=== PATIENT | female | born 1980 | race Caucasian/White ===

== ENCOUNTER 2023-08-19 20:10 | Emergency (ER) | payer OTHER, SELFPAY ==
[2023-08-19 21:41] VITALS: BMI 28.7
--- NOTE | 2023-08-19 21:45 | ED.GENMED ---
History of Present Illness
General
Chief Complaint: Skin Problem
Source: patient
Time Seen by Provider: 08/19/23 21:16
Travel History
Have you had any contact with someone who has COVID-19?: No
Do you have any symptoms of coronavirus? Fever > 100 degrees, chills, cough, shortness of breath, sore throat, loss of taste or smell, muscle aches, or headache?: No
History of Present Illness
History of Present Illness:
This patient is a 42-year-old female with a longstanding history of substance use disorder. She admits to using heroin/fentanyl via IV, cocaine, and abusing the Xanax that she is prescribed. She presents today because she states that she wants to
get help. However, she also expresses concerns about multiple chronic skin findings at her extremities, neck, and hands. She last used about 12 hours ago, is starting to feel unwell like early withdrawal, predict she will be vomiting in the next
few hours. Despite triage note patient denies abdominal pain. She denies fever, chills, dizziness, chest pain, shortness of breath, cough, vomiting, bleeding, urinary symptoms. She does note that after 2-year period, she got her period for the
first time a few days ago.
Past History
Past History
ED Past Medical History: Psychiatric, Other (Polysubstance drug abuse) and Other (Narcotics addiction, seizures, some psychiatric problems and she is on Haldol and Cogentin)
ED Past Surgical History: Other (Skin graft left lower extremity)
Social History
Tobacco: Smoker
Alcohol: None
Drug: Marijuana, Cocaine, Narcotics and IVDA
Personal: Single
Living: with family
Employment: Not employed
Family History
Family History: Unable to obtain
Phy Exam
Physical Exam
Physical Exam:
GENERAL: Alert , in no apparent distress, sl unkempt but interactive and pleasant
EYE: pupils equal and reactive, no photophobia
NECK: Supple, no significant adenopathy.
ENT: o/p clr, mm slightly dry.
CARDIAC: Regular rate and rhythm, no murmur noted.
LUNGS: Clear breath sounds bilaterally, no acute respiratory distress, no wheezes/rales/rhonchi
ABDOMEN: Soft, without focal tenderness, no r/g, no cvat
NEUROLOGICAL: Alert and oriented, no focal neuro deficits
SKIN: Warm and dry, skin intact. No actively draining or open wounds. Multiples areas of scarring/scabs (ex R neck, ex. arms, etc) without evidence of secondary infx noted. No fluctuance/crepitus/streaking, etc. There is a small 3 cm approx
area inner aspect R upper arm with mild ttp and redness/warmth.
MUSCULOSKELETAL: No edema, well perfused.
PSYCH: Normal and appropriate interaction.
Course
Orders/Labs/Results
Orders:
Orders
08/19/23 21:36
Non Vasc Upper Exr Right US [US Non Vasc UPPER Ext RT] Urgent
Comment:
Reason For Exam: attn focal area redness/swelling
08/20/23 01:00
Sulfamethox./Trimethoprim Ds [Bactrim Ds 800 mg/160 mg] 1 tablet PO NOW STA
Vital Signs
Initial and Last Documented VS:
Initial Vital Signs
Temp Pulse Resp Pulse Ox
98 F 156 24 96
08/19/23 20:20 08/19/23 20:20 08/19/23 20:20 08/19/23 20:20
Last Documented Vital Signs
Temp Pulse Resp BP Pulse Ox
98 F 104 18 136/93 97
08/19/23 20:20 08/20/23 00:55 08/20/23 00:55 08/20/23 00:55 08/20/23 00:55
*Critical Care Note
Total Time (30-74mins, 75-104mins- exclusive of procedures): Not Applicable
Update Note
Update Note:
Patient presents to the Emergency Department with substance use disorder and skin concerns
Number and Complexity of Problems Addressed at the Encounter
� Chronic conditions affecting care:
� Acute Exacerbation and/or Progression of Chronic Illness:
� Differential Diagnosis includes: But not limited to abscess, cellulitis, endocarditis, etc.
Amount and/or Complexity of Data to be Reviewed and Analyzed
� I performed an independent evaluation of and my interpretation is:
EKG:
CT:
Xrays:
Laboratory Studies:
Other: US verbal report US tech no abscess seen, no collection or other abnl (suspects scarring of tissue)
� Review of other/old records reveals:
� Clinical information was obtained by an independent historian: Mother and father were at bedside
� Prescriptions/Medications Considered but not given:
� Further testing considered but not performed:
Risk of Complications and/or Morbidity or Mortality of Patient Management
� Social determinants of health affecting care:
� Discussion with other providers (PCP, Hospitalists, Consultants, etc):
� Escalation of care including admission/observation vs risk of discharge considered: Despite history of IV drug use, no stigmata of endocarditis noted on history or physical exam, no fevers chills, sweats, weight loss, splinter
hemorrhage, new murmur, etc.
1254 am pt remains comfortable here. Case d/w [facility], they will f/u with pt in am to work with her for rehab/placement. Pt not yet in w/drawal at hts time.
She is requiesting refill on meds for noncontrolled substances. WIll rx po abx for suspected R ue cellulitis.
D/w pt import of f/ua nd reasons to rted.
ED Attending Note
-
Portions of this chart may have been created with voice recognition software.� Occasional wrong word or��sound alike� substitutions may have occurred due to the inherent limitations of voice recognition software.
Discharge Plan
Departure
Patient Disposition: Home (Routine Discharge)
Date of Disposition: 08/20/23
Time of Disposition: 00:55
Patient with high blood pressure during this ER visit?: Yes
Condition: Good
Discharge Problem:
Cellulitis
Instructions: Cellulitis (Skin Infection), Adult (DC), BLOOD PRESSURE
Prescriptions:
New
lamotrigine [Lamictal] 200 mg tablet
200 mg PO BID Qty: 60 0RF
lamotrigine [Lamictal] 25 mg tablet
50 mg PO BID 7 Days Qty: 28 0RF
levetiracetam [Keppra] 1,000 mg tablet
1,000 mg PO BID Qty: 28 0RF
levetiracetam [Keppra] 500 mg tablet
500 mg PO BID Qty: 28 0RF
sulfamethoxazole-trimethoprim [Bactrim DS] 800-160 mg tablet
1 tab PO BID Qty: 14 0RF
No Action
levetiracetam 500 MG tablet
1,500 mg PO BID
prazosin 1 MG capsule
2 mg PO HS
lamotrigine 25 MG tablet, chewable dispersible
50 mg PO BID
dextroamphetamine-amphetamine 15 MG tablet
30 mg PO BID
omeprazole 20 MG capsule,delayed release(DR/EC)
20 mg PO DAILY
hydroxyzine HCl 25 MG tablet
50 mg PO TIDPRN PRN (Reason: anxiety)
propranolol 20 MG tablet
20 mg PO TID
lamotrigine 100 MG tablet
200 mg PO BID
bupropion HCl 150 MG tablet extended release 24 hr
300 mg PO DAILY
Referrals:
Esequiel Valdes MD [Family Provider] - Follow up in 2-3 days
Activity Restrictions/Additional Instructions:
PLEASE SEE YOUR FAMILY DOCTOR AND CLOSE FOLLOW-UP. IF YOU DEVELOP INCREASING OR NEW REDNESS, WARMTH, PAIN, ANY DRAINAGE, FEVER, NUMBNESS, OR OTHER WORRISOME SIGNS, PLEASE RETURN TO THE ER IMMEDIATELY.
Interventions
Interventions:
*Risk Screen - Suicide Last Done: 08/19/23 20:20
*General Assessment Last Done: 08/19/23 21:44
*Neglect/Abuse Screening Last Done: 08/19/23 20:20
ED- Fall Risk Assessment Last Done: 08/19/23 21:47
*ED COVID-19 Vaccine History Last Done: 08/19/23 21:44
*Nursing Disposition Last Done: 08/20/23 01:08
ED-Skin Assessment Last Done: 08/19/23 23:30
Discharge Date and Time
Discharge Date/Time: 08/20/23 01:08
Print Language: [id number]
[2023-08-20 00:55] VITALS: BP 136/93
[2023-08-20] MEDS: BACTRIM DS 800 MG/160 MG 1 TABLET PO (01:04)
== END 2023-08-20 01:08 | disposition home or self-care (01) ==
LOC: EMR 20:10
PROVIDERS: EMERGENCY PHYSICIAN Emergency Medicine; FAMILY PHYSICIAN Internal Medicine
DX: L03.113 Cellulitis of right upper limb (principal); F19.10 Other psychoactive substance abuse, uncomplicated; F17.200 Nicotine dependence, unspecified, uncomplicated
CPT/HCPCS: 99284; 76882